=== PATIENT | male | born 1960 | race Caucasian/White ===

== ENCOUNTER → 2017-07-08 | Outpatient (CLI) | payer OTHER ==
--- NOTE | 2017-07-10 09:11 | Diagnostic Imaging Report ---
MRI of the left shoulder without contrast. History: Shoulder pain. Note accident. Decreased range of motion. Pain not responding to conservative management. Comparison: None Technique: Coronal PD FS, sagital PD FS, and axial PD and PD FS. Findings: Rotator cuff: There is rotator cuff tendinosis with a full-thickness tear involving the anterior fibers of the supraspinatus and infraspinatus tendons at the humeral insertion site. This is best seen on coronal series 8 image 6 through 9 and sagittal image 5. There is retraction of the torn fibers of the glenoid and there is mild supraspinatus muscle atrophy. Additionally, there is subscapularis tendinosis. The teres minor tendon is intact. Osseous acromion complex: There is a type II acromion with mild lateral downsloping. There is moderate degenerative arthrosis at the acromioclavicular joint with undersurface spurring and narrowing of the supraspinatus tendon outlet. There is mild subacromial/subdeltoid bursitis. Glenohumeral joint: There is degeneration and fraying of the labrum. The articular cartilage surfaces are intact. The humeral head is well-seated in the fossa. There is a small effusion and mild synovitis in the rotator interval and subcoracoid space. Biceps tendon: There is intra-articular biceps tendinosis with fraying at the biceps anchor. Other findings: Negative for muscle denervation or osseous fracture. Impression: Rotator cuff tendinosis with a full-thickness tear involving the anterior fibers of the supraspinatus and infraspinatus tendons at the humeral insertion site. There is retraction of the torn fibers of the glenoid and there is mild supraspinatus muscle atrophy. Additionally, there is subscapularis tendinosis. Moderate degenerative arthrosis at the acromioclavicular joint with undersurface spurring and narrowing of the supraspinatus tendon outlet. There is mild subacromial/subdeltoid bursitis. Intra-articular biceps tendinosis with fraying at the biceps anchor. Signed by: Dr. Adrian Coleman M.D. on 07/10/2017 9:08 AM
== END ==
LOC: MRI 11:42
PROVIDERS: ATTEND Family Medicine
DX: S46.912A Strain of unspecified muscle, fascia and tendon at shoulder and upper arm level, left arm, initial encounter (principal)